=== PATIENT | female | born 1945 | race Caucasian/White ===

== ENCOUNTER → 2020-12-16 06:43 | Outpatient (CLI) | payer MEDICARE, OTHER, SELFPAY ==
[2020-11-30 14:18] VITALS: BMI 20.8
--- NOTE | 2020-12-16 06:47 | ECHOD_ITS ---
Reason For Study: Dyspnea/SOB Procedure This was a 2D Doppler, Color Flow transthoracic echocardiogram. Bubble Study performed. Exam performed in department. Left Ventricle Normal LV size. Left ventricular systolic function is normal. The estimated ejection fraction is 65 %. Stage 1 diastolic dysfunction. No regional wall motion abnormalities noted. Right Ventricle Normal RV size. Normal systolic function. Atria Normal left atrium. Normal right atrium. Prominent eustachian valve. Patent foramen ovale. Aneurysmal atrial septum. Mitral Valve Mild focal mitral valve calcification. Mild (1+) eccentric mitral valve insufficiency. Tricuspid Valve Normal tricuspid valve. Mild (1+) tricuspid valve insufficiency. Pulmonary artery systolic pressure is 28 mmHg. Aortic Valve Trisinus/trileaflet aortic valve. Mild focal aortic valve calcification. Pulmonic Valve Normal pulmonic valve. Great Vessels Normal aortic root. The pulmonary artery is normal size. Inferior vena cava collapse with sniff. Pericardium/Pleural No pericardial effusion. Medication 22 gauge I.V. with prn adaptor inserted into right arm. Performed a rapid injection of agitated mix of 9 cc saline and 1cc air to assess for atrial septal defect. MMode/2D Measurements & Calculations LVIDd: 3.2 cm IVSd: 1.2 cm LA dimension: 3.1 cm LVIDs: 2.0 cm LVPWd: 1.1 cm RVDd: 3.2 cm FS: 36.7 % LAV(MOD-bp): 38.7 ml LA A4 area: 14.1 cm2 RA A4 area: 12.4 cm2 LAV(MOD-bp) Indexed: 23.5 ml/m2 LAV(MOD-sp2): 35.8 ml LAV(MOD-sp4): 37.3 ml Time Measurements MV dec time: 0.20 sec Doppler Measurements & Calculations MV E max lupillo: 40.8 cm/sec Lat Peak E' Lupillo: 4.8 cm/sec Med Peak E' Lupillo: 4.5 cm/sec MV A max lupillo: 72.5 cm/sec E/E' lat: 8.4 E/E' med: 9.0 MV E/A: 0.56 MV V2 max: 78.6 cm/sec MV P1/2t max lupillo: 47.9 cm/sec Ao V2 max: 126.6 cm/sec MV max P.5 mmHg MV P1/2t: 64.6 msec Ao max P.4 mmHg MV V2 mean: 46.9 cm/sec MV dec slope: 217.5 cm/sec2 MV mean P.0 mmHg MV V2 VTI: 13.2 cm MVA(P1/2t): 3.4 cm2 LV V1 max: 94.0 cm/sec PA V2 max: 98.2 cm/sec PI dec slope: 177.5 cm/sec2 LV V1 max P.5 mmHg TR max lupillo: 246.0 cm/sec TR max P.2 mmHg ECHO/Echo Complete Interpretation Summary Normal LV size. Left ventricular systolic function is normal. The estimated ejection fraction is 65 %. Stage 1 diastolic dysfunction. Patent foramen ovale. Prominent eustachian valve. Aneurysmal atrial septum. Ordering Physician: Dillan Escalante Referring Physician: Dillan Escalante Performed By: Alfred Zuniga RCS
--- NOTE | 2020-12-16 17:22 | STRESSREP_ITS ---
Stress Test Report Exercise myocardial perfusion stress test. 75-year-old lady with a history of shortness of breath. Stress protocol: Resting EKG demonstrates normal sinus rhythm with a rate of 85 bpm. Resting blood pressure is 118/80 mmHg. The patient exercised according to regular Joe protocol for a total duration of 4 minutes. Patient completed 1 minute into stage II of the Joe protocol. The test was terminated due to leg fatigue and dyspnea. The maximum heart rate was 162 bpm which was 113% of max impacted heart rate the maximum workload was 5.8 metabolic equivalents. At rest there were no ST or T wave changes noted suggest ischemia and at peak exercise upsloping ST changes only were noted with did not meet the criteria for ischemia . No clinical angina was noted. The peak blood pressure was 154/60 mmHg. Myocardial perfusion protocol. 11.1 mCi of technetium 99m sestamibi was injected at rest. The patient exercised according to regular Joe protocol for 4 minutes and at peak exercise 33.6 mCi of technetium 99m sestamibi was injected at rest. Stress and rest images were reconstructed and compared in the short axis vertical long and horizontal long axis. Gated images were also obtained. Perfusion SPECT analysis: Review of the stress images demonstrate normal uptake of tracer noted in all areas of the myocardium the resting images similarly demonstrate normal uptake of tracer in all areas of the myocardium. No areas of reversibility are noted to suggest ischemia on the stress and resting images. No previous infarct is noted. Gated SPECT analysis: The gated ejection fraction is 71%. Conclusion: Normal exercise myocardial perfusion stress test at a low to moderate workload. No obvious clinical angina noted.
== END ==
PROVIDERS: Referring Provider Internal Medicine Cardiovascular Disease; Visit Provider Internal Medicine Cardiovascular Disease
DX: R06.02 Shortness of breath (principal)
CPT/HCPCS: 78452; 93017; 93306; A9500; A4216; J2785

== ENCOUNTER → 2021-01-02 10:33 | Outpatient (CLI) | payer MEDICARE, OTHER, SELFPAY ==
[2021-01-02 12:27] LABS: Absolute Lymphocyte Count 1.76 X10^3/uL (0.83-4.51); Basophil# 0.04 X10^3/uL; Basophil% 0.6 % (0-1); Eosinophils% 1.6 % (0-5); Hematocrit 43.4 % (37-47); Lymphocyte # 1.76 X10^3/ul (4.0); Lymphocyte % 27.5 % (19-41); Mean Corp Hgb Conc 32.3 g/dL (32-36); Mean Corpuscular Hgb 30.5 pg (27.0-32.0); Mean Corpuscular Volume 94.6 fL (81-99); Mean Platelet Vol. 11.2 fl (6.2-12.0); Monocyte# 0.46 X10^3/uL; Monocyte% 7.2 % (0-10); NRBC Flagged by Analyzer 0 % (0-5); Neutrophil # 4.02 X10^3/uL (2.7-7.7); Neutrophil % 62.8 % (47-70); Platelet Count 278 K/mm3 (150-450); RBC Distribution Width CV 12.4 % (11.6-14.6); RBC Distribution Width SD 43.3 fl (35.1-43.9); Red Blood Count 4.59 M/mm3 (4.2-5.4); White Blood Count 6.4 K/mm3 (4.4-11.0)
[2021-01-02 13:04] LABS: Vitamin B12 318 pg/mL (211-911)
[2021-01-02 13:09] LABS: ALB/GLOB Ratio 1.3 RATIO (0.9-2.4); AST(SGOT) 14 U/L (15-37); Alanine Aminotransfer ALT/SGPT 22 U/L (13-56); Albumin, Serum 4.3 g/dL (3.2-5.0); Alkaline Phosphatase 59 U/L (45-117); Anion Gap 6 (5-15); BUN 15 mg/dL (7-18); BUN/Creat Ratio 25.7 RATIO (10-20); CRP < 2.90 mg/L (0.0-3.0); Calcium,Total 9.7 mg/dL (8.5-10.1); Chloride 102 mmol/L (98-107); Creatinine, Serum 0.58 mg/dL (0.55-1.02); EST Glomerular Filtration Rate 106 mL/min (>60); Est Glom Filt Rate - Afr Amer 129 mL/min (>60); Free T3 2.8 pg/mL (2.18-3.98); Globulin 3.4 g/dL (2.2-4.2); Glucose 105 mg/dL (74-106); Potassium 3.8 mmol/L (3.5-5.1); Protein, Total 7.7 g/dL (6.4-8.2); Sodium Level 136 mmol/L (136-145); T4 Free Direct 1.05 ng/dL (0.76-1.46)
[2021-01-02 13:38] LABS: Erythrocyte Sedimentation Rate 7 mm/hr (0-30)
[2021-01-07 20:05] LABS: Vitamin B1, Thiamine 133.6 nmol/L (66.5-200.0)
== END ==
PROVIDERS: Visit Provider Internal Medicine
DX: E55.9 Vitamin D deficiency, unspecified (principal); R06.00 Dyspnea, unspecified; R20.0 Anesthesia of skin; R20.2 Paresthesia of skin; R53.83 Other fatigue
CPT/HCPCS: 36415; 80053; 82306; 82607; 84425; 84439; 84443; 84481; 85025; 85652; 86140

== ENCOUNTER → 2021-01-04 08:38 | Outpatient (CLI) | payer MEDICARE, OTHER, SELFPAY ==
[2021-01-06 15:54] LABS: Arsenic 7245 5 ug/L (2-23); Lead, Blood 2 ug/dL (0-4); Mercury, Blood 85324 < 1.0 ug/L (0.0-14.9)
== END ==
PROVIDERS: PCP Internal Medicine; Referring Provider Internal Medicine; Visit Provider Internal Medicine
DX: R20.0 Anesthesia of skin (principal); R20.2 Paresthesia of skin; R53.1 Weakness
CPT/HCPCS: 36415; 82175; 83655; 83825

== ENCOUNTER → 2021-01-12 10:00 | Outpatient (CLI) | payer MEDICARE, OTHER, SELFPAY ==
[2021-01-12 08:50] VITALS: BMI 20.5
--- NOTE | 2021-01-12 18:36 | MRI_ITS ---
STUDY: MRI BRAIN WITHOUT CONTRAST REASON FOR EXAM: Female, 75 years old. Loss of balance, falls, abnormal gait -- Numbness and tingling hands and feet TECHNIQUE: Standardized multiplanar fat and water weighted pulse sequences were obtained. COMPARISON: None. FINDINGS: There is moderate cerebral atrophy with widening of the extra-axial spaces and ventricular dilatation. There are multiple white matter hyperintensities, distributed throughout the deep white matter tracts of the cerebral hemispheres, consistent with moderate chronic white matter ischemic changes. There is no evidence for recent intracranial ischemia or other cause of cytotoxic edema on diffusion weighted imaging (DWI). Normal bilateral basal ganglia. Normal thalami. There is no extra-axial fluid accumulation. Normal flow voids within the major intracranial circulation suggesting patency by spin echo criteria. Normal sella turcica, pituitary gland, infundibular stalk, optic chiasm and hypothalamus. Normal tectal plate and pineal gland. Normal midbrain, gil and medulla. Normal cerebellum. Normal basal cisterns. Normal bilateral temporal bones. Normal bilateral internal auditory canals. No demonstrated orbital abnormality, within the constraints of a routine brain study. Normal visualized paranasal sinuses. Normal calvarium and skull base. Normal visualized soft tissue structures. Normal visualized upper cervical spine. MRI/Brain without Contrast IMPRESSION: Involutional changes of the brain, as described above. Electronically Signed: Regino Boyle MD at 22:55 EDT , Service support ,
[2021-01-13 16:08] LABS: Free Kappa Light Chains 11.6 mg/L (3.3-19.4); Free Lambda Light Chains 10.1 mg/L (5.7-26.3)
== END ==
PROVIDERS: Psychiatry & Neurology Neurology; PCP Internal Medicine; Referring Provider Internal Medicine; Visit Provider Internal Medicine
DX: G62.9 Polyneuropathy, unspecified (principal); R26.89 Other abnormalities of gait and mobility
CPT/HCPCS: 36415; 70551; 82746; 83883

== ENCOUNTER → 2021-03-01 14:10 | Outpatient (CLI) | payer MEDICARE, OTHER, SELFPAY ==
[2021-01-12 08:50] VITALS: BMI 20.5
[2021-03-01 10:06] LABS: Cholesterol 242 mg/dL (200); High Density Lipoprotein 83 mg/dL; Triglycerides 71 mg/dL; Very Low Density Lipoprotein 14 mg/dL (5-40)
== END ==
PROVIDERS: PCP Internal Medicine; Referring Provider Psychiatry & Neurology Neurology; Visit Provider Psychiatry & Neurology Neurology
DX: I25.10 Atherosclerotic heart disease of native coronary artery without angina pectoris (principal); I67.9 Cerebrovascular disease, unspecified; R53.83 Other fatigue
CPT/HCPCS: 36415; 80061; 95886; 95912

== ENCOUNTER → 2021-03-20 11:38 | Outpatient (CLI) | payer MEDICARE, OTHER, SELFPAY ==
[2021-01-12 08:50] VITALS: BMI 20.5
--- NOTE | 2021-03-20 13:13 | NEURO_ITS ---
NCS and/or EMG Patient Report Ordering Doctor: Stephen Guajardo DATE OF SERVICE: 03/20/21 Indication: Poor balance, bilateral lower extremity tingling and numbness. Evaluate for peripheral polyneuropathy. Of note, the upper extremities were examined recently. Please refer to the exam dated 03/01/21 for those results. Findings: Examination was requested for bother lower extremities. However, the patient only consented to the left lower extremity being examined. The left peroneal motor study recording the extensor digitorum brevis showed a slightly reduced amplitude, prolonged distal latency and slowed conduction velocity. No conduction block or focal slowing was present across the fibular neck. The left tibial motor study recording the abductor hallucis brevis showed a reduced amplitude, slightly prolonged distal latency and slowed conduction velocity. Left sural sensory response was absent. Left superficial peroneal sensory response was absent. Needle EMG of the left lower extremity and paraspinal muscles was performed. Active denervation was present in distal muscles. Muscles demonstrated large a mplitude, long duration units. The degree of reinnervation appeared to follow a length dependent pattern. The extensor hallucis longus was the most severely affected and revealed slightly decreased recruitment. The vastus medialis muscle revealed motor units that were borderline large. The tensor fascia josué and lumbar paraspinal muscles were unremarkable. Impression: This is a markedly abnormal study. There is electrophysiologic evidence consistent with a length dependent, active and chronic, axonal, sensorimotor, peripheral polyneuropathy. Despite the appearance of a slight pes cavus defor mity, there were no unequivocal signs of demyelination (CV<75% of normal or distal latencies>135% of normal) on this examination. Benji Olivo D.O.
== END ==
PROVIDERS: PCP Internal Medicine; Referring Provider Psychiatry & Neurology Neurology; Visit Provider Psychiatry & Neurology Neurology
DX: R53.83 Other fatigue (principal); G62.9 Polyneuropathy, unspecified
CPT/HCPCS: 95886; 95908

== ENCOUNTER 2021-04-25 10:00 | Outpatient (RCR) | payer MEDICARE, OTHER, SELFPAY ==
[2021-01-12 08:50] VITALS: BMI 20.5
--- NOTE | 2021-01-26 12:25 | HP.PTEVAL_ITS ---
Patient's Visit Information ROMARIO ANTHONY is a 75 year old F referred to Physical Therapy by Dr. Stephen Guajardo MD with a diagnosis of ABNORMALITIES OF GAIT AND MOBILITY,LOW BACK PAIN. Date of Evaluation: 01/26/21 Physical Therapist: Ashwin Brasher PT, Cert MDT, OCS - Visit Plan Frequency: 2x /Week Duration: 4 Weeks Plan: PT INTERVENTIONS GAIT AND BALANCE TRAINING,BLE STRENGTHENING,DLS ,FUNCTIONAL STRENGTHENING AND ENDURANCE PROGRAM - Subjective This 75 y/o female presents to physical therapy for abnormal gait and LBP .Patient has more leg pain and weakness and impairs gait. Patient has been falling mechanical yesterday. Patient seen DR baltazar PT .Also will be tested for Carpel syndrome with pins/needles in hands. Patient has had cardiac check up which is normal. Patient has no back pain ,patient main concern is weakness in legs causes unsteady with walking. Patient has difficulty with stairs even with rails. Patient unable to squat and kneel. Extended walking and standing impairs function and ADL's. Patient denies parathesia/tingling. Patient has difficulty to sleep.Patient denies bowel/bladder issues. Coughing/sneezing-. Patient symptoms affects QOL and ADL': PMH varicose vein surgery,CTS. SOCIAL: lives with daughter,single. VOCATION: retired - Pain Left Lower Extremity Pain Intensity (Out of 10): 7 Pain Intensity Range: 10 - Objective POSTURE: mild forward posture. NEURO: denies parathesia/tingling,reflexes 1/3,L3-4,L4-5,L5-S1. GAIT: reciprocal pattern unsteady sway back n forth. LUMBAR ROM: flexion min loss,extension mod loss. MMT: quad 4-/5,hip flexion 3/5,hip abd 3-/5,hams 3+/5,ankle 3+/5. FLEXIBILITY: mild tight hamstrings. SIT-STAND: unable without arms - Balance Scores Functional Gait Assessment Score: 10 % Disability: 66.6700 CATSIB Score (Max score 120 seconds): 40 - Goals Goal 1:: Patient to be I with HEP Goal Time Frame: 4-6 Weeks Goal 2:: Patient increase strength quads 4/5,hams 4-/5,hip flexion 3+/5,abduction 3+/5 to IMPROVE FUNCTION AND GAIT. Goal Time Frame: 4-6 Weeks Goal 3:: Patient to improve CATSIB by 5 -10 points with to improve balance Goal Time Frame: 4-6 Weeks Goal 4:: Patient to improve functional gait assessment by 10 points or > to improve gait and decrease risk of falls. Goal Time Frame: 4-6 Weeks Goal 5:: Patient to improve LFES score by 10 points or to improve function and gait. Goal Time Frame: 4-6 Weeks - Rehabilitation Potential Physical Therapy Diagnosis: This patient has weakness in legs with decrease gait,balance ,h/o falls and left leg pain impairs function and ADLS' thus will benifit from skilled PT Rehabilitation Potential: Good - Anticipated Interventions Patient/Client Instruction: Educate patient on: Condition, Plan of Care For the Purpose of:: To decrease pain, To improve muscle performance and motor function, To improve ability to perform ADL's, To increase tolerance to activity/condition/position, To improve performance and independence with ADL's, To improve ability of physical actions for home/community/work/leisure, To improve gait and locomotor functions, To improve endurance, To improve balance, To assume or resume ADL's, To improve ability to perform tasks related to life management, To improve tolerance to ADL's Therapeutic Exercise to Include: Strength training, Endurance training, Balance training, Flexibilty training, Gait and locomotor training, Dynamic Lumbar Stabilization Comment: BILTERAL LE STRENGTHENING For the Purpose of:: To improve muscle performance and motor function, To improve ability to perform ADL's, To increase tolerance to activity/condition/position, To improve performance and independence with ADL's, To improve ability of physical actions for home/community/work/leisure, To improve gait and locomotor functions, To improve endurance, To improve balance, To assume or resume ADL's, To reduce risk of recurrence, To improve ability to perform tasks related to life management Thank you for the opportunity to evaluate your patient. For Medicare and Medicare HMO plans, please review the plan of care and approve it. It will need to be FAXED BACK to us at [phone] for Medicare purposes. For Medicare only, by signing this I certify the plan of care. Please let me know if there are questions or concerns regarding this plan of care. Physician Signature: Date:
--- NOTE | 2021-02-24 12:32 | HP.PTREVAL ---
Dr. Stephen Guajardo MD, It has been my pleasure to treat ROMARIO ANTHONY over the last 9 visits for ABNORMALITIES OF GAIT AND MOBILITY,LOW BACK PAIN. Please see the progress note below for an update on the physical therapy plan of care! Subjective: Patient states getting stronger ,balance improving but not perfect no pain. Likes the machines Objective/Function: POSTURE: mild forward posture. GAIT: reciprocal pattern mild unsteady. MMT: left QUAD/HAMS 3+/5, right QUADS/HAMS 4-/5,ANKLE DF 3+/5,hip flexion 3+5 right left 3/5. LUMBAR ROM: flexion min/mod loss, extension mod loss. FLEXABLITY: min/mod tight Plan Plan: CONT WOTH POC 3XWEEK F0 3WEEEKS. PT INTERVENTIONS GAIT AND BALANCE TRAINING,BLE STRENGTHENING,DLS ,FUNCTIONAL STRENGTHENING AND ENDURANCE PROGRAM Goals Goal 1:: Patient to be I with HEP Goal Time Frame: 4-6 Weeks Goal Progress: Not Progressing Goal 2:: Patient increase strength quads 4/5,hams 4-/5,hip flexion 3+/5,abduction 3+/5 to IMPROVE FUNCTION AND GAIT. Goal Time Frame: 4-6 Weeks Goal Progress: Progressing Goal 3:: Patient to improve CATSIB by 5 -10 points with to improve balance Goal Time Frame: 4-6 Weeks Goal Progress: Progressing Goal 4:: Patient to improve functional gait assessment by 10 points or > to improve gait and decrease risk of falls. Goal Time Frame: 4-6 Weeks Goal Progress: Progressing Goal 5:: Patient to improve LFES score by 10 points or to improve function and gait. Goal Time Frame: 4-6 Weeks Goal Progress: Progressing Anticipated Interventions Patient/Client Instruction: Educate patient on: Condition, Plan of Care For the Purpose of:: To decrease pain, To improve muscle performance and motor function, To improve ability to perform ADL's, To increase tolerance to activity/condition/position, To improve performance and independence with ADL's, To improve ability of physical actions for home/community/work/leisure, To improve gait and locomotor functions, To improve endurance, To improve balance, To assume or resume ADL's, To improve ability to perform tasks related to life management, To improve tolerance to ADL's Therapeutic Exercise to Include: Strength training, Endurance training, Balance training, Flexibilty training, Gait and locomotor training, Dynamic Lumbar Stabilization Comment: CLARYTERAL LE STRENGTHENING For the Purpose of:: To improve muscle performance and motor function, To improve ability to perform ADL's, To increase tolerance to activity/condition/position, To improve performance and independence with ADL's, To improve ability of physical actions for home/community/work/leisure, To improve gait and locomotor functions, To improve endurance, To improve balance, To assume or resume ADL's, To reduce risk of recurrence, To improve ability to perform tasks related to life management Please do not hesitate to contact me at [phone] by phone or if you have questions or concerns regarding this new plan of care! Sincerely, Ashwin Brasher, PT, Cert MDT, OCS
--- NOTE | 2021-03-01 15:46 | NEURO ---
NCS and/or EMG Patient Report Ordering Doctor: Stephen Guajardo DATE OF SERVICE: 03/01/21 Billie presents for electrodiagnostic testing of the upper limbs. She reports numbness and tingling in both hands. She has a history of carpal tunnel release over 10 years ago. She does also admit to lower extremity numbness and poor balance. Electrodiagnostic findings: Median motor nerve demonstrates prolonged distal latency bilaterally with reduced conduction velocity. Motor amplitude is reduced bilaterally. Ulnar motor response is normal on the right side. Prolonged left ulnar motor latency is noted with reduced amplitude. Prolonged right median and bilateral ulnar F-wave. Left median F wave could not be obtained. Sensory responses could not be obtained in the upper limbs. On needle EMG, decreased recruitment is noted in the first dorsal interosseous and abductor pollicis brevis bilaterally. No acute denervation is noted. Electrodiagnostic impression: This is an abnormal study in the upper limbs 1. Electrodiagnostic findings demonstrate bilateral median mononeuropathy this is consistent with an advanced bilateral recurrent carpal tunnel syndrome. 2. Recommend correlation with electrodiagnostic testing of the lower limbs to evaluate for peripheral polyneuropathy.
--- NOTE | 2021-03-21 09:37 | HP.PTREVAL ---
Dr. Stephen Guajardo MD, It has been my pleasure to treat ROMARIO ANTHONY over the last 19 visits for ABNORMALITIES OF GAIT AND MOBILITY,LOW BACK PAIN. Please see the progress note below for an update on the physical therapy plan of care! Subjective: Doing better .getting strong No falling . Able to do stairs easier extended standing and dont use walking stick Objective/Function: POSTURE: mild forward posture. GAIT: reciprocal pattern mild unsteady. MMT: QUADS 4-5/HAMS 4/5,HIP FLEXION RIGHT 3+/5 LEFT ,RIGHT 4-/5. BALANCE: GOOD-. STAIRS: ALTERNATE WITH RAIL (1) Plan Plan: CONT WOTH POC 2XWEEK F0r 4 WEEEKS. PT INTERVENTIONS GAIT AND BALANCE TRAINING,BLE STRENGTHENING,DLS ,FUNCTIONAL STRENGTHENING AND ENDURANCE PROGRAM Goals Goal 1:: Patient to be I with HEP Goal Time Frame: 4-6 Weeks Goal Progress: Not Progressing Goal 2:: Patient increase strength quads 4/5,hams 4-/5,hip flexion 3+/5,abduction 3+/5 to IMPROVE FUNCTION AND GAIT. Goal Time Frame: 4-6 Weeks Goal Progress: Progressing Goal 3:: Patient to improve CATSIB by 5 -10 points with to improve balance Goal Time Frame: 4-6 Weeks Goal Progress: Progressing Goal 4:: Patient to improve functional gait assessment by 10 points or > to improve gait and decrease risk of falls. Goal Time Frame: 4-6 Weeks Goal Progress: Progressing Goal 5:: Patient to improve LFES score by 10 points or to improve function and gait. Goal Time Frame: 4-6 Weeks Goal Progress: Progressing Anticipated Interventions Patient/Client Instruction: Educate patient on: Condition, Plan of Care For the Purpose of:: To decrease pain, To improve muscle performance and motor function, To improve ability to perform ADL's, To increase tolerance to activity/condition/position, To improve performance and independence with ADL's, To improve ability of physical actions for home/community/work/leisure, To improve gait and locomotor functions, To improve endurance, To improve balance, To assume or resume ADL's, To improve ability to perform tasks related to life management, To improve tolerance to ADL's Therapeutic Exercise to Include: Strength training, Endurance training, Balance training, Flexibilty training, Gait and locomotor training, Dynamic Lumbar Stabilization Comment: BILTERAL LE STRENGTHENING For the Purpose of:: To improve muscle performance and motor function, To improve ability to perform ADL's, To increase tolerance to activity/condition/position, To improve performance and independence with ADL's, To improve ability of physical actions for home/community/work/leisure, To improve gait and locomotor functions, To improve endurance, To improve balance, To assume or resume ADL's, To reduce risk of recurrence, To improve ability to perform tasks related to life management Please do not hesitate to contact me at [phone] by phone or if you have questions or concerns regarding this new plan of care! Sincerely, Ashwin Brasher, PT, Cert MDT, OCS
--- NOTE | 2021-08-30 08:16 | HP.PTDCSUM_ITS ---
It has been my pleasure to treat ROMARIO ANTHONY referred by Dr. Stephen Guajardo MD, with the diagnosis of ABNORMALITIES OF GAIT AND MOBILITY,LOW BACK PAIN for a total of 28 visit(s). Discharge Date: 04/25/21 Please see the following information for a summary of their discharge status. Subjective: Doing well ..ready for d/c Left Lower Extremity Pain Intensity (Out of 10): 0 % Improvement: 50 Objective/Function: POSTURE: WFL. GAIT: reciprocal pattern improved gait patter n. MMT: quads/hams 4/5,hip flexion 4-/5 ,hip and 3+/5. STAIRS: one steps at time Goal 1:: Patient to be I with HEP Goal Progress: Not Progressing Goal 2:: Patient increase strength quads 4/5,hams 4-/5,hip flexion 3+/5,abduction 3+/5 to IMPROVE FUNCTION AND GAIT. Goal Progress: Goal Met Goal 3:: Patient to improve CATSIB by 5 -10 points with to improve balance Goal Progress: Goal Met Goal 4:: Patient to improve functional gait assessment by 10 points or > to improve gait and decrease risk of falls. Goal Progress: Goal Met Goal 5:: Patient to improve LFES score by 10 points or to improve function and gait. Goal Progress: Goal Met Plan: d/c to hep Discharge Comments: hep If there are questions or concerns regarding this patient's physical therapy, please feel free to call me at [phone]. Thank you for the referral of this patient. Sincerely, Ashwin Brasher, PT, Cert MDT, OCS Balance/Gait/Functional tests - Balance/Special Test Scores Functional Gait Assessment Score: 17 % Disability: 43.3400 CATSIB Score (Max score 120 seconds): 60 Lower Extremity Functional Score: 52
== END 2021-04-25 19:00 | disposition home or self-care (01) ==
LOC: PT 10:00
PROVIDERS: PCP Internal Medicine; Referring Provider Psychiatry & Neurology Neurology; Visit Provider Psychiatry & Neurology Neurology
DX: M54.5 Low back pain (principal); R26.9 Unspecified abnormalities of gait and mobility
CPT/HCPCS: 97110; 97162; 97530

== ENCOUNTER → 2021-05-11 15:50 | Outpatient (CLI) | payer MEDICARE, OTHER, SELFPAY ==
[2021-01-12 08:50] VITALS: BMI 20.5
--- NOTE | 2021-05-11 15:53 | CT_ITS ---
STUDY: CT CHEST WITHOUT CONTRAST REASON FOR EXAM: Female, 75 years old. Lung nodule RADIATION DOSAGE (If Supplied By Facility): CTDIvol = ( 6.10 ) mGy, DLP = ( 214.82 ) mGycm TECHNIQUE: Transaxial imaging was performed without the administration of intravenous contrast material. Multiplanar coronal and sagittal images were reformatted. Individualized dose optimization techniques were used for this CT. COMPARISON: None. FINDINGS: Increased markings at the lung bases suggestive of scarring. Mild increased linear markings in the anterior aspect of the superior segment of the left lower lobe. Increased linear markings with areas of confluence and a nodular appearance in the medial anterior aspect of the left upper lobe. The nodular density measures 9 mm x 5.9 mm. This most likely represents an area of scarring. It is also evidence of minimal increased markings in the posterior lateral aspect of the superior aspect of the right lower lobe. This abuts the pleural surface. Adjacent to this, there is a 4 mm noncalcified nodule. There is no demonstrated pleural abnormality. There are calcifications of the coronary arteries. There are multiple small lymph nodes within the mediastinum, which are normal in size and morphology most compatible with reactive lymph hyperplasia. Normal hilar regions. Normal unenhanced pulmonary arteries. There is atherosclerotic calcification of the aortic arch with tortuosity and elongation of the aortic arch and descending thoracic aorta. There are multi-level degenerative changes of the thoracic spine. There is no demonstrated abnormality of the visualized upper abdomen. CT/Chest without Contrast IMPRESSION: Findings suggestive scarring at the lung apices. Findings suggestive of scarring with 9 mm x 5.9 mm nodular density in the anterior medial aspect of the left upper lobe as well as in the lateral aspect of the right lower lobe. A six-month follow-up CT scan is recommended for further evaluation. Electronically Signed: Jensen Leavitt MD at 9:00 EDT , Service support ,
== END ==
PROVIDERS: PCP Internal Medicine; Referring Provider Internal Medicine; Visit Provider Internal Medicine
DX: R91.1 Solitary pulmonary nodule (principal)
CPT/HCPCS: 71250

== ENCOUNTER → 2024-05-26 | Outpatient (CLI) | payer MEDICARE, OTHER, SELFPAY ==
[2024-05-26 15:28] LABS: Absolute Lymphocyte Count 1.68 X10^3/uL (0.83-4.51); Absolute Neutrophil Count 2.5 X10^3/uL (2.0-7.7); Basophil# 0.04 X10^3/uL; Basophil% 0.8 % (0-1); Eosinophil# 0.11 X10^3/uL; Eosinophils% 2.3 % (0-5); Hematocrit 40.6 % (37-47); Hemoglobin 12.7 g/dL (12.0-15.0); Lymphocyte # 1.68 X10^3/ul (0.83-4.51); Lymphocyte % 35.5 % (19-41); Mean Corp Hgb Conc 31.3 g/dL (32-36); Mean Corpuscular Hgb 29.1 pg (27.0-32.0); Mean Corpuscular Volume 93.1 fL (81-99); Mean Platelet Vol. 11.5 fl (6.2-12.0); Monocyte# 0.42 X10^3/uL; Monocyte% 8.9 % (0-10); NRBC Flagged by Analyzer 0 % (0-5); Neutrophil # 2.47 X10^3/uL (2.7-7.7); Neutrophil % 52.3 % (47-70); Platelet Count 219 K/mm3 (150-450); RBC Distribution Width CV 12.6 % (11.6-14.6); RBC Distribution Width SD 43.3 fl (35.1-43.9); Red Blood Count 4.36 M/mm3 (4.2-5.4); White Blood Count 4.7 K/mm3 (4.4-11.0)
[2024-05-26 15:59] LABS: ALB/GLOB Ratio 1.3 RATIO (0.9-2.4); AST(SGOT) 21 U/L (15-37); Alanine Aminotransfer ALT/SGPT 22 U/L (13-56); Albumin, Serum 3.9 g/dL (3.2-5.0); Alkaline Phosphatase 73 U/L (45-117); Anion Gap 6 (5-15); BUN 12 mg/dL (7-18); BUN/Creat Ratio 19.2 RATIO (10-20); Calcium,Total 9.4 mg/dL (8.5-10.1); Chloride 107 mmol/L (98-107); Cholesterol 226 mg/dL (200); Creatinine, Serum 0.62 mg/dL (0.55-1.02); EST Glomerular Filtration Rate 98 mL/min (>60); Est Glom Filt Rate - Afr Amer 118 mL/min (>60); Glucose 87 mg/dL (74-106); High Density Lipoprotein 82 mg/dL; Potassium 3.8 mmol/L (3.5-5.1); Protein, Total 6.9 g/dL (6.4-8.2); Sodium Level 140 mmol/L (136-145); Triglycerides 57 mg/dL; Very Low Density Lipoprotein 11 mg/dL (5-40)
== END | disposition home or self-care (01) ==
LOC: BFHLAB 13:23
PROVIDERS: PCP Nurse Practitioner Family; Referring Provider Nurse Practitioner Family; Visit Provider Nurse Practitioner Family
DX: I10 Essential (primary) hypertension (principal); E78.5 Hyperlipidemia, unspecified; E55.9 Vitamin D deficiency, unspecified
CPT/HCPCS: 36415; 80053; 80061; 82306; 85025